=== PATIENT | male | born 1970 | race Caucasian/White ===

== ENCOUNTER 2017-04-24 09:46 | Emergency (ER) | payer SELFPAY ==
[~2017-04-24] VITALS: Ht 170.2 cm; Wt 82.7 kg
[~2017-04-24 09:46] MED LIST: NO HOME MEDICATIONS; NORCO 325 MG-51 TAB PO; PERCOCET 325 MG1 TA2 PO; PERCOCET 5/321 UDTAB PO
[2017-04-24 09:48] VITALS: BP 165/113; TEMP 98.4
== END 2017-04-24 14:00 | disposition home or self-care (01) ==
LOC: COL.ER 09:46
DX: S68.021A Partial traumatic metacarpophalangeal amputation of right thumb, initial encounter (principal); F41.9 Anxiety disorder, unspecified; G25.0 Essential tremor; Z23 Encounter for immunization; W23.0XXA Caught, crushed, jammed, or pinched between moving objects, initial encounter; Y99.0 Civilian activity done for income or pay

== ENCOUNTER → 2017-06-10 | Outpatient (CLI) | payer OTHER | LOC: MHCPAIN 08:52 | DX: G89.29 Other chronic pain (principal); M79.641 Pain in right hand; F17.200 Nicotine dependence, unspecified, uncomplicated | CPT/HCPCS: G0463 ==

== ENCOUNTER 2017-06-27 13:38 | Inpatient (IN) | payer OTHER ==
[~2017-06-27] VITALS: Ht 170.2 cm; Wt 82.7 kg
[2017-06-27] MEDS ORDERED: NEURONTIN300 MG/CAP PO (13:43)
[2017-06-27] MEDS ORDERED: ATIVAN 0.50.5 MG/TAB PO (13:44)
[2017-06-27 14:16] LABS: COLLECTION METHOD CLEAN CATCH
[2017-06-27 14:25] LABS: MUCOUS Present /lpf; PH 8 (5-8); SQUAMOUS EPITHELIAL 0-2 /hpf; URINE APPEARANCE Clear; URINE BACTERIA Rare /hpf; URINE BILIRUBIN Negative (NEGATIVE); URINE BLOOD 1+ (NEGATIVE); URINE COLOR Amber; URINE GLUCOSE Negative (NEGATIVE); URINE KETONE 1+ (NEGATIVE); URINE LEUKOCYTE ESTERASE Negative (NEGATIVE); URINE PROTEIN(semi-quant) 2+ (NEGATIVE); URINE RBC 20-50 /hpf; URINE UROBILINOGEN Negative (NEGATIVE)
[2017-06-27 14:50] LABS: BASO % 0.2 % (0.0-2.0); EOS # 0.1 (0.0-0.7); EOS % 0.4 % (0-4.0); GRAN # 13.9 (1.4-6.5); GRAN % 83.7 % (42.2-75.2); HEMATOCRIT 46.3 % (42.0-52.0); HEMOGLOBIN 15.8 g/dl (13.5-18.0); LYMPH # 1.3 (1.2-3.4); LYMPH % 7.6 % (20.0-51.0); MEAN CELL VOLUME 91 fl (80.0-100.0); MEAN CORPUSCULAR HEMOGLOBIN 31 pg (27.0-31.0); MEAN CORPUSCULAR HGB CONC 34 g/dl (33.0-37.0); MEAN PLATELET VOLUME 10.5 fl (7.4-10.4); MONO # 1.3 (0.1-0.6); MONO % 7.6 % (1.7-9.3); PLATELET COUNT 189 K/mm3 (130-400); WHITE BLOOD COUNT 16.5 K/mm3 (4.8-10.8)
[2017-06-27 15:14] LABS: ALBUMIN 4.8 gm/dL (3.5-5.0); BILIRUBIN,TOTAL 1.2 mg/dL (0.0-1.0); CALCIUM 9.6 mg/dL (8.4-10.2); CREATININE, serum 0.96 mg/dL (0.66-1.25); POTASSIUM 3.7 mmol/L (3.4-5.0)
[2017-06-27 15:32] LABS: C-REACTIVE PROTEIN 14.7 mg/dL (0.0-0.9)
[2017-06-27 18:29] LABS: ADD PATHOLOGY DIFF REVIEW NO
[2017-06-27 18:32] LABS: HEMATOCRIT 41.7 % (42.0-52.0); HEMOGLOBIN 14.2 g/dl (13.5-18.0); MEAN CELL VOLUME 91 fl (80.0-100.0); MEAN CORPUSCULAR HEMOGLOBIN 31 pg (27.0-31.0); MEAN CORPUSCULAR HGB CONC 34 g/dl (33.0-37.0); MEAN PLATELET VOLUME 10.5 fl (7.4-10.4); PLATELET COUNT 171 K/mm3 (130-400); WHITE BLOOD COUNT 16.7 K/mm3 (4.8-10.8)
[2017-06-27 18:46] LABS: BAND 14 % (0-10); LYMPHOCYTE 3 % (20.0-51.0); NEUTROPHILS 81 % (42.0-75.2); PLATELET ESTIMATE NORMAL (NORMAL); TOTAL CELLS COUNTED 100
[2017-06-27 18:57] LABS: CALCIUM 8.7 mg/dL (8.4-10.2); CREATININE, serum 0.94 mg/dL (0.66-1.25); POTASSIUM 3.9 mmol/L (3.4-5.0)
[2017-06-27 19:26] VITALS: BP 118/74; PULSE 96; TEMP 100.2
[2017-06-28 00:18] VITALS: BP 104/54; PULSE 99; TEMP 102.3
[2017-06-28 03:17] VITALS: BP 107/62; PULSE 86; TEMP 99
[2017-06-28 08:14] VITALS: BP 119/68; PULSE 85; TEMP 98.2
[2017-06-28 11:58] VITALS: BP 124/76; PULSE 88; TEMP 98.6
[2017-06-28 16:41] VITALS: BP 113/62; PULSE 92; TEMP 99.3
[2017-06-28 20:57] VITALS: BP 116/69; PULSE 98; TEMP 99.4
[2017-06-29 00:49] VITALS: BP 110/66; PULSE 85; TEMP 98.2
[2017-06-29 03:09] VITALS: BP 122/82; PULSE 58; TEMP 98.2
[2017-06-29 06:57] LABS: ADD PATHOLOGY DIFF REVIEW NO
[2017-06-29 07:19] LABS: ADJUSTED CALCIUM 8.8 mg/dL (8.4-10.2); ALBUMIN 3.3 gm/dL (3.5-5.0); BILIRUBIN,TOTAL 0.7 mg/dL (0.0-1.0); CALCIUM 8.2 mg/dL (8.4-10.2); CREATININE, serum 0.84 mg/dL (0.66-1.25); MAGNESIUM 2.1 mg/dL (1.6-2.3); POTASSIUM 3.9 mmol/L (3.4-5.0); TOTAL PROTEIN 6.3 gm/dL (6.4-8.2)
[2017-06-29 07:50] LABS: HEMATOCRIT 37.2 % (42.0-52.0); MEAN CELL VOLUME 94 fl (80.0-100.0); MEAN CORPUSCULAR HEMOGLOBIN 31 pg (27.0-31.0); MEAN CORPUSCULAR HGB CONC 33 g/dl (33.0-37.0); MEAN PLATELET VOLUME 10.8 fl (7.4-10.4); PLATELET COUNT 154 K/mm3 (130-400); RED BLOOD COUNT 3.97 M/mm3 (4.20-5.60); WHITE BLOOD COUNT 13.1 K/mm3 (4.8-10.8)
[2017-06-29 07:51] LABS: HEMOGLOBIN 12.2 g/dl (13.5-18.0)
[2017-06-29 10:50] LABS: BAND 24 % (0-10); LYMPHOCYTE 7 % (20.0-51.0); NEUTROPHILS 66 % (42.0-75.2); PLATELET ESTIMATE NORMAL (NORMAL); TOTAL CELLS COUNTED 100
[2017-06-29 15:55] VITALS: BP 137/79; PULSE 95; TEMP 97.8
[2017-06-29 20:14] VITALS: BP 135/79; PULSE 84; TEMP 98.4
[2017-06-29 23:28] VITALS: BP 128/80; PULSE 76; TEMP 98.4
[2017-06-30 04:41] VITALS: BP 115/77; PULSE 67; TEMP 98.3
[2017-06-30 07:00] LABS: BASO % 0.3 % (0.0-2.0); EOS # 0.2 (0.0-0.7); EOS % 1.9 % (0-4.0); GRAN # 6.9 (1.4-6.5); GRAN % 78.3 % (42.2-75.2); HEMATOCRIT 40.6 % (42.0-52.0); HEMOGLOBIN 13.5 g/dl (13.5-18.0); LYMPH % 10.9 % (20.0-51.0); MEAN CELL VOLUME 92 fl (80.0-100.0); MEAN CORPUSCULAR HEMOGLOBIN 31 pg (27.0-31.0); MEAN CORPUSCULAR HGB CONC 33 g/dl (33.0-37.0); MEAN PLATELET VOLUME 11.1 fl (7.4-10.4); MONO # 0.7 (0.1-0.6); MONO % 8.1 % (1.7-9.3); PLATELET COUNT 184 K/mm3 (130-400); RED BLOOD COUNT 4.41 M/mm3 (4.20-5.60); WHITE BLOOD COUNT 8.9 K/mm3 (4.8-10.8)
[2017-06-30 07:09] LABS: CALCIUM 9.5 mg/dL (8.4-10.2); CREATININE, serum 0.83 mg/dL (0.66-1.25); MAGNESIUM 2.4 mg/dL (1.6-2.3)
[2017-06-30 08:26] VITALS: BP 113/80; PULSE 72; TEMP 98.5
[2017-06-30] MEDS ORDERED: CIPRO 500MG TA500 MG PO (10:29)
[2017-06-30] MEDS ORDERED: FLAGYL500 MG PO (10:29)
[2017-06-30] MEDS ORDERED: FLORASTOR250 MG PO (10:30)
[2017-06-30] MEDS ORDERED: PROBIOTIC ACID1 EAC3 PO (10:30)
[2017-06-30 11:32] VITALS: BP 131/83; PULSE 63; TEMP 99.1
== END 2017-06-30 13:10 | disposition home or self-care (01) | DRG 872 ==
LOC: COL.ER 13:38 → MEDICAL 17:22
PROVIDERS: Emergency Medicine; Internal Medicine; Physician Assistant
DX: A41.9 Sepsis, unspecified organism (principal); K57.32 Diverticulitis of large intestine without perforation or abscess without bleeding; R73.03 Prediabetes; J44.9 Chronic obstructive pulmonary disease, unspecified; F17.210 Nicotine dependence, cigarettes, uncomplicated
CPT/HCPCS: 99223-AI; 99231-AI; 99232-AI; 99233-AI; J0744; J1170; J1650; J2270; J2405; J2543; J7030; J7050; Q9967

== ENCOUNTER → 2017-08-12 | Outpatient (CLI) | payer OTHER ==
[~2017-08-12] MED LIST changes: +ATIVAN 0.50.5 MG/TAB PO; +CIPRO 500MG TA500 MG PO; +FLAGYL500 MG PO; +FLORASTOR250 MG PO; +NEURONTIN300 MG/CAP PO; +PROBIOTIC ACID1 EAC3 PO
== END ==
LOC: MHCPAIN 13:21
DX: G89.29 Other chronic pain (principal); M79.2 Neuralgia and neuritis, unspecified; M79.1 Myalgia; F17.200 Nicotine dependence, unspecified, uncomplicated
CPT/HCPCS: G0463

== ENCOUNTER 2017-09-09 15:15 | Outpatient (RCR) | payer OTHER | END 2017-09-10 | disposition home or self-care (01) | LOC: WSOT | DX: Z47.89 Encounter for other orthopedic aftercare (principal); G90.511 Complex regional pain syndrome I of right upper limb; S67.01XD Crushing injury of right thumb, subsequent encounter; Z89.011 Acquired absence of right thumb ==

== ENCOUNTER → 2017-09-14 | Outpatient (CLI) | payer OTHER | LOC: MHCPAIN 15:00 | DX: G89.29 Other chronic pain (principal); M79.2 Neuralgia and neuritis, unspecified; M79.1 Myalgia | CPT/HCPCS: G0463 ==

== ENCOUNTER → 2017-11-11 | Outpatient (CLI) | payer OTHER | LOC: MHCPAIN 13:50 | DX: G89.29 Other chronic pain (principal); M79.2 Neuralgia and neuritis, unspecified; M79.1 Myalgia | CPT/HCPCS: G0463 ==

== ENCOUNTER 2017-11-24 15:15 | Outpatient (RCR) | payer OTHER | END 2017-12-14 | disposition home or self-care (01) | LOC: WSOT | DX: G90.50 Complex regional pain syndrome I, unspecified (principal); M79.641 Pain in right hand; Z89.011 Acquired absence of right thumb ==

== ENCOUNTER → 2018-01-11 | Outpatient (CLI) | payer OTHER | LOC: MHCPAIN 15:39 | DX: G89.29 Other chronic pain (principal); M79.2 Neuralgia and neuritis, unspecified; M79.1 Myalgia; M25.541 Pain in joints of right hand | CPT/HCPCS: G0463 ==